=== PATIENT | male | born 1970 | race Caucasian/White ===

== ENCOUNTER 2024-03-17 14:41 | Outpatient (CLI) | payer OTHER, SELFPAY ==
--- NOTE | ~2024-03-17 | XR_ITS ---
XR abdomen/kub 1V 03/17/2024 15:09 INDICATION: Atherosclerotic hematuria TECHNIQUE: KUB COMPARISON: None FINDINGS: Bowel gas pattern is normal. There is no evidence of free air, mass, organomegaly, ascites or obstruction. There is a small 2-3 mm calcification in the right abdomen, suspicious for renal sto ne. The bones appear intact. IMPRESSION: 1: Probable 2-3 mm right renal stone at the L2-3 level.. Reviewed, dictated and finalized at location B.
--- NOTE | ~2024-03-17 | CT_ITS ---
CT abdomen pelvis wo/w con Ordering provider: Bry Sesay MD History: 53 years Male with . MICROSCOPIC HEMATURIA . Comparison: None. Technique: CT abdomen and pelvis with IV and without oral contrast. Automated exposure control and it erative reconstruction technique were employed. The dose-length product was 1612.06 mGy-cm. 130 mL Om nipaque 350 was given IV. Findings: VISUALIZED LOWER CHEST: Dependent atelectatic changes. UPPER ABDOMINAL ORGANS: Liver: Normal. Gallbladder: Normal. Spleen: Normal. Stomach/duodenum: Normal. Pancreas: Normal. Adrenals: Normal. Kidneys: Bilateral hydronephrotic changes more on the left side. No ureteric stones seen. Possibility of pelviureteric junction stenosis is not excluded. Clinical correlation advised. PELVIC ORGANS: The bladder is normal. BOWEL AND MESENTERY: Colon: Mild sigmoid diverticulosis without diverticulitis. The appendix is not demonstrated with no e vidence of appendicitis. Small Bowel: Normal. No obstruction. Peritoneum/mesentery: No free air or free fluid. No mesenteric lymphadenopathy. RETROPERITONEUM: Mild atheromatous disease of the abdominal aorta. No retroperitoneal lymphadenopat hy. Small para-aortic lymph nodes. MUSCULOSKELETAL: Superficial soft tissues: Left inguinal fat containing hernia. Otherwise, The superficial soft tissue s are normal. Bones: Age appropriate degenerative changes of the spine. IMPRESSION: 1. Bilateral kidney hydronephrotic changes with highly suggestive pelviureteric junction stenosis. N o stones seen. 2. No evidence of appendicitis, diverticulitis or intestinal obstruction. No renal stones. Reviewed, dictated and finalized at location A. IMPRESSION: 1. Bilateral kidney hydronephrotic changes with highly suggestive pelviureteri c junction stenosis. No stones seen. 2. No evidence of appendicitis, diverticulitis or intestinal obstruction. No r enal stones.
== END 2024-03-17 14:42 | disposition home or self-care (01) ==
LOC: ANHIMG 14:50
PROVIDERS: PCP Internal Medicine; Visit Provider Urology
DX: R31.29 Other microscopic hematuria (principal)
CPT/HCPCS: 74018; 74178; Q9967

== ENCOUNTER 2024-03-30 14:29 | Outpatient (CLI) | payer OTHER, SELFPAY ==
--- NOTE | ~2024-03-30 | NM_ITS ---
EXAMINATION: XOCHITL lopes renal scan DATE: 03/30/2024 15:32 INDICATION: Microscopic hematuria. Hydronephrosis. TECHNIQUE: 8.1 mCi Tc-99m MAG3 was administered IV. 40 mg furosemide was administered IV immediately afterward. The patient was scanned in the supine position. A posterior abdominal radionuclide angiog kuldip was obtained. A subsequent time course of static images of the kidneys, ureters, and bladder was obtained. COMPARISON: CT abdomen pelvis 03/17/2024 FINDINGS: The posterior abdominal radionuclide angiogram and sequential static images show mild atrop hy of left kidney. Peak renal parenchymal uptake was 3 min in right kidney and 20 min in left kidney (normal peak 3-5 minutes). The relative early renal uptake was 75% on the right and 25% on the left (<40% is abnormal). No abnormalities of the ureters or bladder are seen. T1/2 for clearance of activity from the right kidney and proximal collecting system was 14 minutes. T1/2 for clearance of activity from the left kidney and proximal collecting system was >>20 minutes. IMPRESSION: 1. Decreased left kidney function, which is 25% of total renal function. 2. Delayed contrast clearance from left kidney, consistent with fixed ureteral obstruction. Reviewed, dictated and finalized at location A.
== END 2024-03-30 14:30 | disposition home or self-care (01) ==
PROVIDERS: PCP Internal Medicine; Visit Provider Urology
DX: R31.29 Other microscopic hematuria (principal)
CPT/HCPCS: 78708; A9562

== ENCOUNTER 2024-09-20 12:44 | Outpatient (CLI) | payer OTHER, SELFPAY ==
--- NOTE | ~2024-09-20 | NM_ITS ---
EXAMINATION: XOCHITL lopes renal scan DATE: 09/20/2024 14:03 INDICATION: Hydronephrosis. TECHNIQUE: 7.8 mCi Tc-99m MAG3 was administered IV. 40 mg furosemide was administered IV immediately afterward. The patient was scanned in the supine position. A posterior abdominal radionuclide angiog kuldip was obtained. A subsequent time course of static images of the kidneys, ureters, and bladder was obtained. COMPARISON: Renal scan 03/30/2024, CT abdomen and pelvis 03/17/2024 FINDINGS: The posterior abdominal radionuclide angiogram and sequential static images show mild atrop hy of left kidney.. Peak renal parenchymal uptake was 3 min in right kidney and 3 min in left kidney (normal peak 3-5 minutes). The relative early renal uptake was 70% on the right and 30% on the left (<40% is abnormal). No abnormalities of the ureters or bladder are seen. T1/2 for clearance of activity from the right kidney and proximal collecting system was >>20 minutes. T1/2 for clearance of activity from the left kidney and proximal collecting system was >>20 minutes. IMPRESSION: 1. Decreased left kidney function, which is 30% of total renal function. 2. Delayed contrast clearance from both kidneys, which may be seen with supine positioning, dehydrat ion, atonic collecting system, poor renal function, and chronic furosemide use. Reviewed, dictated and finalized at location B. GED CARE PROVIDER IMPRESSION: 1. Decreased left kidney function, which is 30% of total renal function. 2. Delayed contrast clearance from both kidneys, which may be seen with supine positioning, dehydration, atonic collecting system, poor renal function, and c hronic furosemide use.
--- OUTSIDE RECORDS SUMMARY | 2024-09-22 00:32 | XMS_ITS | Data Portability ---
Author Organization [facility] [employer], Main Office Address [address] [place] [address] Assessment No assessment recorded. Plan of Treatment Reminders Order Date Submit Date Provider Last Modified By Organization Details Last Modified Time Details Appointments None record ed. Lab None record ed. Referral None record ed. Procedures None record ed. Surgeries None record ed. Imaging None record ed. Medication Orders None record ed. Patient TargetsNo targets recorded. Patient InstructionsNo instructions recorded. Reason for Referral None Reported. Results Created Date Observation Date Name Description Value Unit Range Abnormal Flag Note LastModifiedBy Organization Detail LastModifiedTime 12/26/19 22 12/25/2021 URINE MICRO SCOPI C EXAM/ IRIS white blood cells 0-8 /i??h pfi?? 0-8 Not Available [facility] (Lab) [address] [place], [address], 12/25/2021 16:51:33 12/26/19 22 12/25/2021 URINE MICRO SCOPI C EXAM/ IRIS red blood cells 0-4 /i??h pfi?? 0-4 Not Available [facility] (Lab) [address] [place], [address], 12/25/2021 16:51:33 12/26/19 22 12/25/2021 URINE MICRO SCOPI C EXAM/ IRIS bacteria none Not Available [facility] (Lab) [address] [place], [address], 12/25/2021 16:51:33 12/26/19 22 12/25/2021 URINE MICRO SCOPI C EXAM/ IRIS mucous occasi onal /i??l pfi?? abnormal Not Available [facility] (Lab) [address] [place], [address], 12/25/2021 16:51:33 12/26/19 22 12/25/2021 URINE MICRO SCOPI C EXAM/ IRIS squamous epithelial none /i??l pfi?? abnormal Not Available [facility] (Lab) [address] [place], [address], 12/25/2021 16:51:33 01/09/20 22 01/08/2022 urina lysis , dipst ick Leukocytes (reference range: negative jinny/??l) Negati ve Not Available [address], [address], 01/08/2022 10:59:37 01/09/20 22 01/08/2022 urina lysis , dipst ick Nitrite (reference rage: negative mg/dl) negati ve Not Available [address], [address], 01/08/2022 10:59:37 01/09/20 22 01/08/2022 urina lysis , dipst ick Urobilinogen (reference range: 0.2-1 mg/dl) 0.2 Not Available [address], [address], 01/08/2022 10:59:37 01/09/20 22 01/08/2022 urina lysis , dipst ick Protein (reference range: negative mg/dl) Negati ve Not Available [address], [address], 01/08/2022 10:59:37 01/09/20 22 01/08/2022 urina lysis , dipst ick pH (reference range: 5-7) 6.5 Not Available [address], [address], 01/08/2022 10:59:37 01/09/20 22 01/08/2022 urina lysis , dipst ick Blood (reference range: negative Maximo/??l) Negati ve Not Available [address], [address], 01/08/2022 10:59:37 01/09/20 22 01/08/2022 urina lysis , dipst ick Specific [place] (reference range: 1.005-1.030) 1.015 Not Available [address], [address], 01/08/2022 10:59:37 01/09/20 22 01/08/2022 urina lysis , dipst ick Ketone (reference range: negative mg/dl) Negati ve Not Available [address], [address], 01/08/2022 10:59:37 01/09/20 22 01/08/2022 urina lysis , dipst ick Bilirubin (reference range: negative mg/dl) Negati ve Not Available [address], [address], 01/08/2022 10:59:37 01/09/20 22 01/08/2022 urina lysis , dipst ick Glucose (reference range: negative mg/dl) Negati ve Not Available [address], [place], [address], 01/08/2022 10:59:37 01/09/20 22 01/08/2022 urina lysis , dipst ick Appearance Clear Not Available [facility] [address], [address], [place], [address], 01/08/2022 10:59:37 01/09/20 22 01/08/2022 urina lysis , dipst ick Color Yellow Not Available [facility] [place] [address], [address], [place], [address], 01/08/2022 10:59:37 03/09/20 24 03/09/2024 URINA LYSIS COMPL ETE, IRIS color LIGHT- YELLOW Not Available [facility] (Lab) [address] [place], [address], 03/09/2024 17:07:07 03/09/20 24 03/09/2024 URINA LYSIS COMPL ETE, IRIS appear CLEAR Not Available [facility] (Lab) [address] [place], [address], 03/09/2024 17:07:07 03/09/20 24 03/09/2024 URINA LYSIS COMPL ETE, IRIS specific gravity 1.020 1.001- 1.030 Not Available [facility] (Lab) [address] [place], [address], 03/09/2024 17:07:07 03/09/20 24 03/09/2024 URINA LYSIS COMPL ETE, IRIS pH 5.5 pH_un its 5.0-9. 0 Not Available [facility] (Lab) [address] [place], [address], 03/09/2024 17:07:07 03/09/20 24 03/09/2024 URINA LYSIS COMPL ETE, IRIS leukocytes NEGATI VE jinny/u L negati ve- Not Available [facility] (Lab) [address] [place], [address], 03/09/2024 17:07:07 03/09/20 24 03/09/2024 URINA LYSIS COMPL ETE, IRIS nitrite NEGATI VE negati ve- Not Available [facility] (Lab) [address] [place], [address], 03/09/2024 17:07:07 03/09/20 24 03/09/2024 URINA LYSIS COMPL ETE, IRIS protein 10 mg/dL negati ve- abnormal Not Available [facility] (Lab) [address] [place], [address], 03/09/2024 17:07:07 03/09/20 24 03/09/2024 URINA LYSIS COMPL ETE, IRIS glucose NORMAL mg/dL normal - Not Available [facility] (Lab) [address] [place], [address], 03/09/2024 17:07:07 03/09/20 24 03/09/2024 URINA LYSIS COMPL ETE, IRIS ketones NEGATI VE mg/dL negati ve- Not Available [facility] (Lab) [address] [place], [address], 03/09/2024 17:07:07 03/09/20 24 03/09/2024 URINA LYSIS COMPL ETE, IRIS urobilinogen NORMAL mg/dL normal - Not Available [facility] (Lab) [address] [place], [address], 03/09/2024 17:07:07 03/09/20 24 03/09/2024 URINA LYSIS COMPL ETE, IRIS bilirubin NEGATI VE mg/dL negati ve- Not Available [facility] (Lab) [address] [place], [address], 03/09/2024 17:07:07 03/09/20 24 03/09/2024 URINA LYSIS COMPL ETE, IRIS blood 0.06 mg/dL negati ve- abnormal Not Available [facility] (Lab) [address] [place], [address], 03/09/2024 17:07:07 03/09/20 24 03/09/2024 URINA LYSIS COMPL ETE, IRIS color LIGHT- YELLOW Not Available [facility] (Lab) [address] [place], [address], 03/09/2024 17:07:32 03/09/20 24 03/09/2024 URINA LYSIS COMPL ETE, IRIS appear CLEAR Not Available [facility] (Lab) [address] [place], [address], 03/09/2024 17:07:32 03/09/20 24 03/09/2024 URINA LYSIS COMPL ETE, IRIS specific gravity 1.020 1.001- 1.030 Not Available [facility] (Lab) [address] [place], [address], 03/09/2024 17:07:32 03/09/20 24 03/09/2024 URINA LYSIS COMPL ETE, IRIS pH 5.5 pH_un its 5.0-9. 0 Not Available [facility] (Lab) [address] [place], [address], 03/09/2024 17:07:32 03/09/20 24 03/09/2024 URINA LYSIS COMPL ETE, IRIS leukocytes NEGATI VE jinny/u L negati ve- Not Available [facility] (Lab) [address] [place], [address], 03/09/2024 17:07:32 03/09/20 24 03/09/2024 URINA LYSIS COMPL ETE, IRIS nitrite NEGATI VE negati ve- Not Available [facility] (Lab) [address] [facility] [place], [address], 03/09/2024 17:07:32 03/09/20 24 03/09/2024 URINA LYSIS COMPL ETE, IRIS protein 10 mg/dL negati ve- abnormal Not Available [facility] (Lab) [address] [place], [address], 03/09/2024 17:07:32 03/09/20 24 03/09/2024 URINA LYSIS COMPL ETE, IRIS glucose NORMAL mg/dL normal - Not Available [facility] (Lab) [address] [place], [address], 03/09/2024 17:07:32 03/09/20 24 03/09/2024 URINA LYSIS COMPL ETE, IRIS ketones NEGATI VE mg/dL negati ve- Not Available [facility] (Lab) [address] [place], [address], 03/09/2024 17:07:32 03/09/20 24 03/09/2024 URINA LYSIS COMPL ETE, IRIS urobilinogen NORMAL mg/dL normal - Not Available [facility] (Lab) [address] [place], [address], 03/09/2024 17:07:32 03/09/20 24 03/09/2024 URINA LYSIS COMPL ETE, IRIS bilirubin NEGATI VE mg/dL negati ve- Not Available [facility] (Lab) [address] [place], [address], 03/09/2024 17:07:32 03/09/20 24 03/09/2024 URINA LYSIS COMPL ETE, IRIS blood 0.06 mg/dL negati ve- abnormal Not Available [facility] (Lab) [address] [place], [address], 03/09/2024 17:07:32 03/09/20 24 03/09/2024 URINA LYSIS COMPL ETE, IRIS white blood cells 0-8 /i??h pfi?? 0-8 Not Available [facility] (Lab) [address] [place], [address], 03/09/2024 17:07:32 03/09/20 24 03/09/2024 URINA LYSIS COMPL ETE, IRIS red blood cells 5-10 /i??h pfi?? 0-4 abnormal Not Available [facility] (Lab) [address] [place], [address], 03/09/2024 17:07:32 03/09/20 24 03/09/2024 URINA LYSIS COMPL ETE, IRIS bacteria NONE Not Available [facility] (Lab) [address] [place], [address], 03/09/2024 17:07:32 03/09/20 24 03/09/2024 URINA LYSIS COMPL ETE, IRIS mucous OCCASI ONAL /i??l pfi?? abnormal Not Available [facility] (Lab) [address] [place], [address], 03/09/2024 17:07:32 03/09/20 24 03/09/2024 URINA LYSIS COMPL ETE, IRIS squamous epithelial OCCASI ONAL /i??l pfi?? abnormal Not Available [facility] (Lab) [address] [place], [address], 03/09/2024 17:07:32 03/09/20 24 03/09/2024 CBC/C OMPLE TE BLD COUNT W/DIF F white blood cells 6.5 x10'3 /uL 4.2-10 .8 Not Available [facility] (Lab) [address] [place], [address], 03/09/2024 17:08:18 03/09/20 24 03/09/2024 CBC/C OMPLE TE BLD COUNT W/DIF F red blood cells 4.38 x10'6 /uL 4.10-5 .80 Not Available [facility] (Lab) [address] [place], [address], 03/09/2024 17:08:18 03/09/20 24 03/09/2024 CBC/C OMPLE TE BLD COUNT W/DIF F hemoglobin 14.1 g/dL 13.2-1 7.0 Not Available [facility] (Lab) [address] [place], [address], 03/09/2024 17:08:18 03/09/20 24 03/09/2024 CBC/C OMPLE TE BLD COUNT W/DIF F hematocrit 40.9 % 39.3-5 0.0 Not Available [facility] (Lab) [address] [place], [address], 03/09/2024 17:08:18 03/09/20 24 03/09/2024 CBC/C OMPLE TE BLD COUNT W/DIF F mean red cell volume 93.4 fL 80.0-9 7.0 Not Available [facility] (Lab) [address] [place], [address], 03/09/2024 17:08:18 03/09/20 24 03/09/2024 CBC/C OMPLE TE BLD COUNT W/DIF F mean red cell hemoglobin 32.2 pg 27.0-3 3.0 Not Available [facility] (Lab) [address] [place], [address], 03/09/2024 17:08:18 03/09/20 24 03/09/2024 CBC/C OMPLE TE BLD COUNT W/DIF F mean RBC HGB concentratio n 34.5 g/dL 31.0-3 6.0 Not Available [facility] (Lab) [address] [place], [address], 03/09/2024 17:08:18 03/09/20 24 03/09/2024 CBC/C OMPLE TE BLD COUNT W/DIF F red cell distribution width 12.5 % 11.8-1 5.5 Not Available [facility] (Lab) [address] [place], [address], 03/09/2024 17:08:18 03/09/20 24 03/09/2024 CBC/C OMPLE TE BLD COUNT W/DIF F platelets 273 x10'3 /uL 150-40 0 Not Available [facility] (Lab) [address] [place], [address], 03/09/2024 17:08:18 03/09/20 24 03/09/2024 CBC/C OMPLE TE BLD COUNT W/DIF F mean platelet volume 10.2 fL 9.0-12 .4 Not Available [facility] (Lab) [address] [place], [address], 03/09/2024 17:08:18 03/09/20 24 03/09/2024 CBC/C OMPLE TE BLD COUNT W/DIF F neutrophils 61.8 % 39.0-7 2.0 Not Available [facility] (Lab) [address] [place], [address], 03/09/2024 17:08:18 03/09/20 24 03/09/2024 CBC/C OMPLE TE BLD COUNT W/DIF F lymphocytes 26.8 % 16.0-4 7.0 Not Available [facility] (Lab) [address] [place], [address], 03/09/2024 17:08:18 03/09/20 24 03/09/2024 CBC/C OMPLE TE BLD COUNT W/DIF F monocytes 8.5 % 5.0-12 .0 Not Available [facility] (Lab) [address] [place], [address], 03/09/2024 17:08:18 03/09/20 24 03/09/2024 CBC/C OMPLE TE BLD COUNT W/DIF F eosinophils 1.5 % 1.0-7. 0 Not Available [facility] (Lab) [address] [place], [address], 03/09/2024 17:08:18 03/09/20 24 03/09/2024 CBC/C OMPLE TE BLD COUNT W/DIF F basophils 0.9 % 0.0-2. 0 Not Available [facility] (Lab) [address] [place], [address], 03/09/2024 17:08:18 03/09/20 24 03/09/2024 CBC/C OMPLE TE BLD COUNT W/DIF F immature granulocytes 0.5 % 0.00-0 .50 Not Available [facility] (Lab) [address] [place], [address], 03/09/2024 17:08:18 03/09/20 24 03/09/2024 CBC/C OMPLE TE BLD COUNT W/DIF F neutrophils, absolute count 3.99 x10'3 /uL 1.5-8. 0 Not Available [facility] (Lab) [address] [place], [address], 03/09/2024 17:08:18 03/09/20 24 03/09/2024 CBC/C OMPLE TE BLD COUNT W/DIF F lymphocytes, absolute count 1.73 x10'3 /uL 1.07-3 .43 Not Available [facility] (Lab) [address] [place], [address], 03/09/2024 17:08:18 03/09/20 24 03/09/2024 CBC/C OMPLE TE BLD COUNT W/DIF F monocytes, absolute count 0.55 x10'3 /uL 0.29-0 .99 Not Available [facility] (Lab) [address] [place], [address], 03/09/2024 17:08:18 03/09/20 24 03/09/2024 CBC/C OMPLE TE BLD COUNT W/DIF F eosinophils, absolute count 0.10 x10'3 /uL 0.02-0 .53 Not Available [facility] (Lab) [address] [place], [address], 03/09/2024 17:08:18 03/09/20 24 03/09/2024 CBC/C OMPLE TE BLD COUNT W/DIF F basophils, absolute count 0.06 x10'3 /uL 0.01-0 .08 Not Available [facility] (Lab) [address] [place], [address], 03/09/2024 17:08:18 03/09/20 24 03/09/2024 CBC/C OMPLE TE BLD COUNT W/DIF F immature granulocytes ,absolute 0.03 x10'3 /uL 0.00-0 .05 Not Available [facility] (Lab) [address] [place], [address], 03/09/2024 17:08:18 03/09/20 24 03/09/2024 CBC/C OMPLE TE BLD COUNT W/DIF F nucleated red blood cells 0.0 % -0 Not Available [facility] (Lab) [address] [place], [address], 03/09/2024 17:08:18 03/09/20 24 03/09/2024 CBC/C OMPLE TE BLD COUNT W/DIF F NRBC# 0.00 x10'3 /uL Not Available [facility] (Lab) [address] [place], [address], 03/09/2024 17:08:18 03/09/20 24 03/09/2024 COMPR EHENS NELLIE METAB OLIC PANEL sodium 138 mmol/ L 137-14 5 Not Available [facility] (Lab) [address] [place], [address], 03/09/2024 17:23:59 03/09/20 24 03/09/2024 COMPR EHENS NELLIE METAB OLIC PANEL potassium 4.6 mmol/ L 3.5-5. 1 Not Available [facility] (Lab) [address] [place], [address], 03/09/2024 17:23:59 03/09/20 24 03/09/2024 COMPR EHENS NELLIE METAB OLIC PANEL chloride 110 mmol/ L 98-107 high Not Available [facility] (Lab) [address] [place], [address], 03/09/2024 17:23:59 03/09/20 24 03/09/2024 COMPR EHENS NELLIE METAB OLIC PANEL carbon dioxide 24 mmol/ L 22-30 Not Available [facility] (Lab) [address] [place], [address], 03/09/2024 17:23:59 03/09/20 24 03/09/2024 COMPR EHENS NELLIE METAB OLIC PANEL anion gap 8.6 mmol/ L 14-22 low Not Available [facility] (Lab) [address] [place], [address], 03/09/2024 17:23:59 03/09/20 24 03/09/2024 COMPR EHENS NELLIE METAB OLIC PANEL glucose 90 mg/dL 70-99 Not Available [facility] (Lab) [address] [place], [address], 03/09/2024 17:23:59 03/09/20 24 03/09/2024 COMPR EHENS NELLIE METAB OLIC PANEL BUN 17 mg/dL 8-19 Not Available [facility] (Lab) [address] [place], [address], 03/09/2024 17:23:59 03/09/20 24 03/09/2024 COMPR EHENS NELLIE METAB OLIC PANEL creatinine 1.40 mg/dL 0.66-1 .25 high Not Available [facility] (Lab) [address] [place], [address], 03/09/2024 17:23:59 03/09/20 24 03/09/2024 COMPR EHENS NELLIE METAB OLIC PANEL GFR 53 Refer ence Range : Potter ge GFR Healt hy Adult : >60 mL/mi n/1.7 3 m2 Chron ic Kidne y Disea se: 15-60 mL/mi n/1.7 3 m2 Kidne y Failu re: <15/m L/min /1.73 m2 www.n iddk. nih.g ov The MDRD study equat ion has not been valid ated in child dori <18 years of age; pregn ant women ; the elder ly >85 years of age; or in some racia l or ethni c subgr oups, such as Hisil nics. Outsi de the valid ated pito eters , estim ated GFR is less accur ate, requi ring clini melissa judgm ent on a case- by-ca se basis . Clini melissa inter preta tion for other races and ages must be made by the clini leon. The MDRD study equat ion has not been valid ated for the evalu ation of serum creat inine relat ed to nutri julia l statu s or medic ation usage . For perso ns <18 years of age, a pedia tric GFR calcu lator is avail able on the [facility] websi te: https ://marc matos.janee meadows/pr ofess ional s/kdo qi/gf r_cal culat or Not Available [facility] (Lab) [address] [place], [address], 03/09/2024 17:23:59 03/09/20 24 03/09/2024 COMPR EHENS NELLIE METAB OLIC PANEL alkaline phosphatase 57 U/L 38-126 Not Available [facility] (Lab) [address] [place], [address], 03/09/2024 17:23:59 03/09/20 24 03/09/2024 COMPR EHENS NELLIE METAB OLIC PANEL alanine aminotransfe rase 15 U/L 0-50 Not Available [facility] (Lab) [address] [place], [address], 03/09/2024 17:23:59 03/09/20 24 03/09/2024 COMPR EHENS NELLIE METAB OLIC PANEL aspartate aminotransfe rase 20 U/L 15-46 Not Available [facility] (Lab) [address] [place], [address], 03/09/2024 17:23:59 03/09/20 24 03/09/2024 COMPR EHENS NELLIE METAB OLIC PANEL bilirubin, total 0.60 mg/dL 0.20-1 .30 Not Available [facility] (Lab) [address] [place], [address], 03/09/2024 17:23:59 03/09/20 24 03/09/2024 COMPR EHENS NELLIE METAB OLIC PANEL calcium 9.6 mg/dL 8.4-10 .2 Not Available [facility] (Lab) [address] [place], [address], 03/09/2024 17:23:59 03/09/20 24 03/09/2024 COMPR EHENS NELLIE METAB OLIC PANEL total protein 7.0 g/dL 6.3-8. 2 Not Available [facility] (Lab) [address] [place], [address], 03/09/2024 17:23:59 03/09/20 24 03/09/2024 COMPR EHENS NELLIE METAB OLIC PANEL albumin 4.5 g/dL 3.4-5. 0 Not Available [facility] (Lab) [address] [place], [address], 03/09/2024 17:23:59 03/09/20 24 03/09/2024 COMPR EHENS NELLIE METAB OLIC PANEL globulin 2.5 g/dL 2.6-4. 2 low Not Available [facility] (Lab) [address] [place], [address], 03/09/2024 17:23:59 03/09/20 24 03/09/2024 COMPR EHENS NELLIE METAB OLIC PANEL A/G ratio 1.8 ratio 1.0-2. 0 Not Available [facility] (Lab) [address] [place], [address], 03/09/2024 17:23:59 03/09/20 24 03/09/2024 LIPID PANEL cholesterol 185 mg/dL 140-19 9 [employer] GRANT NSUS RECOM MENDA TION FOR NAOMIE STERO L: ADULT CHILD LOW RISK: <200 <170 BORDE RLINE : <200- 239 ----- HIGH RISK: >240 >200 Not Available [facility] (Lab) [address] [place], [address], 03/09/2024 17:24:04 03/09/20 24 03/09/2024 LIPID PANEL triglyceride s 138 mg/dL 0-150 NIH GRANT NSUS REPOR T RECOM MENDA TION FOR TRIGL YCERI MALORIE: ADULT CHILD LOW RISK: <150 ----- BODER LINE: 150-1 99 ----- HIGH RISK: >200 ----- Not Available [facility] (Lab) [address] [place], [address], 03/09/2024 17:24:04 03/09/20 24 03/09/2024 LIPID PANEL HDL cholesterol 40 mg/dL 40- Not Available [facility] (Lab) [address] [place], [address], 03/09/2024 17:24:04 03/09/20 24 03/09/2024 LIPID PANEL LDL cholesterol, calculated 117 mg/dL 0-130 NIH GRANT NSUS REPOR T RECOM MENDA TIONS FOR LDL: ADULT CHILD LOW RISK <130 <110 (OPTI MAL LDL) <100 ----- BORDE RLINE : 130-1 59 ----- HIGH RISK: >160 >130 A TRIGL YCERI DE RESUL T >400 INVAL IDATE S THE CALCU LATIO N FOR LDL FRACT IONAT ION - THE LDL RESUL T WILL NOT BE REPOR JENNIFER. Not Available [facility] (Lab) [address] [place], [address], 03/09/2024 17:24:04 03/09/20 24 03/09/2024 PSA SCREE N PSA medicare screen 1.16 NG/mL 0.00-4 .00 Not Available [facility] (Lab) [address] [place], [address], 03/09/2024 18:01:45 12/20/19 22 XR, lumba r spine [facility] [address] [place] [address] Patien t Name: ALMA BENNETT ion #: [id number] Sex: M : 1969 4 Locati on: RA2 Attend ing Physic amaris: GRANT GONSALES [facility] Physic amaris: GRANT GONSALES Exam Date: 022 4:46 PM Exam Name: XR L SPINE 4V+ Admitt ing Diagno sis(es ): RADIOL OGY REPORT - FINAL EXAM: XR L SPINE 4V+ HISTOR Y: pain COMPAR ROSENDO: None availa ble. TECHNI QUE: AP, bilate ral obliqu e's, latera l, and coned latera l views of the lumbar sacral juncti on. FINDIN GS: Examin ation of the lumbar spine reveal s the interv ertebr al disc spaces to be preser mamadou. Bony pedicl es appear intact . There is mild-t o-mode rate multil evel degene rative change s throug hout the thorac olumba r spine. The sacral iliac joints appear normal . There is no fractu re or bone destru ction identi fied. Page 1 of 2 [facility] Patien t Name: ALMA BENNETT ion #: [id number] Sex: M : 1969 4 Exam Date: 4:46 PM Exam Name: XR L SPINE 4V+ Admitt ing Diagno sis(es ): If clinic al sympto ms shivaniis t, MRI examin ation could be consid ered. IMPRES ZULEYKA: No acute proces s, see above. Create d and electr onical ly signed by: Bal watkins MD Signed Date: 8:30 AM (CT) Dictat ed by: Bal watkins MD DD: 8:30 AM (CT) DT: 8:30 AM (CT) Page 2 of 2 [id number] [facility] (Imaging) [address] [place], [address], 10/28/2022 08:54:59 12/20/19 XR, kidne y + urete r + bladd er [facility] [address] [place] [address] [phone] [place] t Name: ALMA BENNETT ion #: [id number] Sex: M : 1969 4 Locati on: RA2 Attend ing Physic amaris: GRANT GONSALES [facility] Physic amaris: GRANT GONSALES Exam Date: 4:46 PM Exam Name: XR ABDOME N 1V Admitt ing Diagno sis(es ): RADIOL OGY REPORT - FINAL EXAM: XR ABDOME N 1V HISTOR Y: pain COMPAR ROSENDO: None availa ble. TECHNI QUE: AP views of the abdome n were perfor med. FINDIN GS: Examin ation of the abdome n in supine positi on reveal s a normal bowel gas patter n withou t radiog raphic eviden ce of mechan ical bowel obstru ction. There is no eviden ce of abnorm al calcif icatio n. The liver and spleen are not enlarg ed. No air is apprec iated in the biliar y tree. IMPRES ZULEYKA: Page 1 of 2 [facility] Pati vannessa Name: ALMA BENNETT ion #: [id number] Sex: M : 1969 4 Exam Date: 4:46 PM Exam Name: XR ABDOME N 1V Admitt ing Diagno sis(es ): No radiog raphic eviden ce of abdomi nal diseas e. Create d and electr onical ly signed by: Bal watkins MD Signed Date: 1:11 PM (CT) Dictat ed by: Bal watkins MD DD: 1:11 PM (CT) DT: 1:11 PM (CT) Page 2 of 2 [id number] [facility] (Imaging) [address] [place], [address], 10/28/2022 08:54:59 01/14/20 22 01/07/2022 CT, abdom en + pelvi s, w/ contr ast No observ ation record ed. [id number] Not Available 10/28/2022 08:54:59 01/16/20 22 01/14/2022 NM, kidne y scan No observ ation record ed. [id number] [facility] ([facility]) [address] [place], [address], 10/28/2022 08:54:59 11/11/19 23 11/10/2022 elect roenc ephal ogram (EEG) ; inclu ding recor ding awake and drows y (PROC ) No observ ation record ed. [email or web address] [facility] [address], [place], [address], 11/16/2022 09:44:50 11/19/19 23 11/10/2022 varsha nuous elect roenc ephal ogram with video No observ ation record ed. [email or web address] Not Available 21:12:14 03/17/20 24 03/16/2024 LDCT, chest , for lung [place] [facility] [address] [facility] [place] [address] Patien t Name: ALMA BENNETT ion #: [id number] Sex: M : 1969 7 Dictat ed By: Gavin Montanez Attend ing Physic amaris: GRANT GONSALES Orderi ng Physic amaris: GRANT GONSALES Exam Date: 2023 14:43 PM Exam Name: CT LOW DOSE CNCR SCREEN ING Admitt ing Diagno sis(es ): Proced ure: CT LOW DOSE CNCR SCREEN ING Reason for study/ Clinic al Histor y: cancer screen ing, nicoti ne depend ence Compar rosendo Study: None availa ble at time of dictat ion. Exam Date: 2023 02:43 PM TECHNI QUE: Multid etecto r CT of the chest was perfor med from the lung apices to the upper abdome n withou t the use of intrav enous contra ct. Axial, mora l and sagitt al multip lanar reform ats were perfor med. Radiat ion Dose Inform ation: CT Dose: CTDI volume is 25 mGy. Dose-l ength produc t is 250 mGy*cm The dose indica tors for CT are the volume Comput ed Tomogr aphy (CT) Dose Index (CTDIv ol) and the Dose Length Produc t (DLP), and are measur ed in units of mGy and mGy-cm , respec tively . These indica tors are not patien t dose, but values genera jennifer from the CT scanne r acquis ition factor s. The report includ es radiat ion exposu re data for exposu res receiv ed during this examin ation. FINDIN GS: Lower neck: Normal thyroi d. Lungs: No suspic ious pulmon jean nodule s. Diffus e centri lobula r emphys morgan. Bronch iectas is. Heart/ Vascul ar Struct ures: Normal heart size. No perica rdial effusi on. Lymph Nodes: No adenop athy Page 1 [facility] [facility] [address] [facility] [place] [address] Patien t Name: ALMA BENNETT ion #: [id number] Sex: M : 1969 7 Dictat ed By: Gavin Montanez Attend ing Physic amaris: DRU MAXWELL Orderi ng Physic amaris: GRANT GONSALES Exam Date: 2023 14:43 PM Exam Name: CT LOW DOSE CNCR SCREEN ING Admitt ing Diagno sis(es ): Pleura : No pleura l effusi on or signif icant pneumo thorax . Muscul oskele surekha: No acute osseou s abnorm ality. Soft tissue s: Normal . Upper abdome n: Limite d portio ns of the upper abdome n are unrema rkable . IMPRES ZULEYKA: No acute intrat horaci c abnorm ality. Catego ry 1: Contin ue annual screen ing with LDCT Radiat ion optimi zation : All CT scans at this facili ty use at least one of these dose optimi zation techni ques: automa jennifer exposu re contro l mA and/or kV adjust ment per patien t size (inclu malorie target ed exams where dose is matche d to clinic al indica tion) or iterat nellie recons tructi on. Electr onical ly Signed by: Gavin Montanez at 2023 07:32: 38 AM Page 2 [email or web address] [facility] (Imaging) [address], [place], [address], 03/29/2024 13:59:57 Result Notes None recorded. Problems Name Problem SNOMED Code Status Onset Date Resolution Date Notes Provider Name and Address Organization Details Recorded Time Left flank pain 043444554 Active 2021 Not Available [facility] 3 08:50:03 Ganglion of wrist 629262802 Active 2018 Not Available [facility] 3 08:50:03 Dyspnea 994170523 Active Not Available [facility] 3 08:50:03 Dizziness and giddiness 331739785 Active Not Available [facility] 3 08:50:03 Thoracic back pain 725161486 Active Not Available [facility] 3 08:50:03 Low back pain 970742759 Active Not Available [facility] 3 08:50:03 Chest pain 77484675 Active Not Available [facility] 3 08:50:03 Bronchitis 27752035 Active Not Available [facility] 3 08:50:03 Dizziness 841621875 Active 2021 Not Available [facility] 3 08:50:04 Otitis media 68662596 Active 2021 Not Available [facility] 3 08:50:04 Palpitations 99075828 Active Not Available [facility] 3 08:50:04 Fatigue 17545855 Active Not Available [facility] 3 08:50:04 Acute sinusitis 24066288 Active 2022 Jerilyn Eugene RN [facility], [place] - [facility] [employer] [facility] 3 12:49:40 Problem Notes None recorded. Procedures Surgical History Date Name Laterality Status Provider Name and Address Organization Details Recorded Time arthroscopy of knee completed Not Available [facility] 10/28/2022 08:45:29 incision and drainage completed Not Available [facility] 10/28/2022 08:45:29 Imaging Results Imaging Date Name Status LastModified by Organization Details LastModified Time 12/19/2021 XR, lumbar spine completed MIGRATION.0 [id number] [facility] [address] [place], [address], 10/28/2022 08:54:59 12/19/2021 XR, kidney + ureter + bladder completed MIGRATION.0301 [id number] [facility] ([facility]) [address] [place], [address], 10/28/2022 08:54:59 01/14/2022 NM, kidney scan completed MIGRATION.03 [id number] [facility] ([facility] Scheduling) [address] [place], [address], 10/28/2022 08:54:59 01/07/2022 CT, abdomen + pelvis , w/ contrast completed MIGRATION.0301 [id number] Information not available 10/28/2022 08:54:59 11/10/2022 electroencephalogram (EEG); including recording awake and drowsy (PROC) completed [email or web address] [address] [facility] [address], [place], [address], 11/16/2022 09:44:50 11/10/2022 continuous electroencephalogram with video completed [email or web address] Information not available 11/24/2022 21:12:14 03/16/2024 LDCT, chest, for rafa g cancer screening completed [email or web address] [facility] ([facility]) [address] [place], [address], 03/29/2024 13:59:57 Procedure Notes None recorded. Medical Equipment None Reported. Allergies Allergen ID Allergen Name Allergen Category Reaction Reaction Severity Criticality Documentation Date Start Date Code Code System Note Provider Name and Address Organization Details Recorded Time 72822 lorazepam medicatio n other Not available Not available 10/28/2022 6470 RxNorm suici peter thoug hts Not Available [facility] 08:54:50 Medications Name Sig Start Date Stop Date Status Note LastModified by Organization Details LastModified Time cyclobenzap rine 10 mg tablet 09/29 completed Not Available Not Available Not Available amoxicillin 500 mg capsule TAKE 1 CAPSULE BY MOUTH THREE TIMES DAILY 07/13 completed Not Available Not Available Not Available azithromyci n 250 mg tablet TAKE 2 TABLETS BY MOUTH FOR 1 DAY THEN TAKE 1 TABLET BY MOUTH DAILY FOR 4 DAYS active Not Available Not Available No t Available ibuprofen 800 mg tablet Take 1 tablet 3 times a day by oral route with meals. active Not Available Not Available No t Available tizanidine 4 mg tablet TK 1 T PO Q 8 H PRF SPASM 11/28 completed Not Available Not Available Not Available hydrocodone 5 mg-acetamin ophen 325 mg tablet TAKE 1 TABLET BY MOUTH EVERY 6 HOURS NEEDED 07/13 completed Not Available Not Available Not Available meloxicam 15 mg tablet TK 1 T PO QD 11/28 completed Not Available Not Available Not Available Medrol (Slade) 4 mg tablets in a dose pack Take 1 package every day by oral route. 11/28 completed Not Available Not Available Not Available acetaminoph en 300 mg-codeine 30 mg tablet 09/29 completed Not Available Not Available Not Available sulfamethox azole 800 mg-trimetho prim 160 mg tablet TAKE 1 TABLET BY MOUTH TWICE DAILY FOR 10 DAYS 12/18 completed Not Available Not Available Not Available tramadol 50 mg tablet 08/10 completed Not Available Not Available Not Available lorazepam 0.5 mg tablet 11/28 completed Not Available Not Available Not Available hydrocodone 7.5 mg-acetamin ophen 325 mg tablet TK 1 T PO Q 8 H PRN P 12/04 completed Not Available Not Available Not Available cephalexin 500 mg capsule TAKE 1 CAPSULE BY MOUTH FOUR TIMES DAILY active Not Available Not Available No t Available hydrocodone 7.5 mg-acetamin ophen 750 mg tablet 08/10 completed Not Available Not Available Not Available Paxil 10 mg tablet Take 1 tablet every day by oral route. 12/17 completed Not Available Not Available Not Available mometasone 0.1 % topical cream APPLY A THIN LAYER TO THE AFFECTED AREA(S) BY TOPICAL ROUTE ONCE DAILY active Not Available Not Available No t Available Advil 2021 active Not Available Not Available Not Avai lable ProAir HFA 90 mcg/actuati on aerosol inhaler Inhale 2 puff(s) EVERY 4 hours as needed active Not Available Not Available No t Available Vitals Date Recorded Body mass index (BMI) Body height Heart rate Body temperature Body weight Systolic blood pressure Diastolic blood pressure Provider Name and Address Organization Details Last Updated DateTime 2 29.1 kg/m2 180.34 cm 70 /min 97.5 [degF] 01534.8 1 g 120 mm[Hg] 70 mm[Hg] Not Available [facility] 3 08:47:46 Date Recorded Body mass index (BMI) Body height Oxygen saturation Oxygen saturation in Arterial blood by Pulse oximetry Body temperature Body weight Provider Name and Address Organization Details Last Updated DateTime 2 29.1 kg/m2 180.34 cm 97 % 97 % 98.4 [degF] 19362.8 1 g Not Available [facility] 3 08:47:51 Date Recorded Body mass index (BMI) Body height Heart rate Body temperature Body weight Systolic blood pressure Diastolic blood pressure Provider Name and Address Organization Details Last Updated DateTime 2 29 kg/m2 180.34 cm 74 /min 97.4 [degF] 43037.2 1 g 140 mm[Hg] 80 mm[Hg] Not Available [facility] 3 08:47:46 Date Recorded Body mass index (BMI) Body height Heart rate Body temperature Body weight Systolic blood pressure Diastolic blood pressure Provider Name and Address Organization Details Last Updated DateTime 2 28.2 kg/m2 180.34 cm 83 /min 98 [degF] 54530.6 6 g 118 mm[Hg] 82 mm[Hg] Not Available [facility] 3 08:47:47 Date Recorded Body height Heart rate Body temperature Body weight Systolic blood pressure Diastolic blood pressure Provider Name and Address Organization Details Last Updated DateTime 2 180.34 cm 83 /min 98.5 [degF] 08541.2 1 g 118 mm[Hg] 70 mm[Hg] Not Available [facility] 3 08:47:47 Social History Question Answer Notes LastModified by Organization Details LastModified Time Tobacco Smoking Status Current Every Day Smoker Not Available [facility] 10/28/2022 08:45:10 Do You Have An Advance Directive? No MIGRATION.030 [id number] Information not available 10/28/2022 What Is Your Level Of Alcohol Consumption? Occasional MIGRATION.0301 [id number] Information not available 10/28/2022 What Is Your Level Of Caffeine Consumption? Heavy MIGRATION.0301 154244 Information not available 10/28/2022 In The 14 Days Before Symptom Onset, Have You Had Close Contact With A Laboratory-confi rmed COVID-19 While That Case Was Ill? No MIGRATION.030 [id number] Information not available 10/28/2022 In The 14 Days Before Symptom Onset, Have You Had Close Contact With A Person Who Is Under Investigation For COVID-19 While That Person Was Ill? No MIGRATION.030 861824 Information not available 10/28/2022 What Type Of Diet Are You Following? REGULAR MIGRATION.0301 580693 Information not available 10/28/2022 What Is The Highest Grade Or Level Of School You Have Completed Or The Highest Degree You Have Received? 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 No MIGRATION.0301 966987 Information not available 10/28/2022 What Is The Fluoride Status Of Your Home? Unknown MIGRATION.0301 084084 Information not available 10/28/2022 Are There Any Guns Present In Your Home? No MIGRATION.0301 194939 Information not available 10/28/2022 Do You Use Insect Repellent Routinely? No MIGRATION.0301 [id number] Information not available 10/28/2022 Where Do You Live? SingleLevelHouse MIGRATION.0301 325062 Information not available 10/28/2022 Do You Have A Medical Power Of Financial Compliance Officer? No MIGRATION.0301 977053 Information not available 10/28/2022 What Was The Date Of Your Most Recent Tobacco Screening? 07/13/2022 MIGRATION.0301 335393 Information not available 10/28/2022 What Is Your Current Pack Years? 30ormorepackyears MIGRATION.0301 831207 Information not available 10/28/2022 Have You Ever Been Counseled For Unhealthy Alcohol Use? No MIGRATION.0301 906911 Information not available 10/28/2022 Do You Have Any Pets? Yes MIGRATION.0301 653761 Information not available 10/28/2022 What Is Your Relationship Status? MIGRATION.0301 [id number] Information not available 10/28/2022 Do You Use Your Seat Belt Or Car Seat Routinely? Yes MIGRATION.0301 344336 Information not available 10/28/2022 Do You Have Smoke And Carbon Monoxide Detectors In Your Home? Yes MIGRATION.0301 471090 Information not available 10/28/2022 At What Age Did You Start Smoking Tobacco? 16 MIGRATION.0301 872856 Information not available 10/28/2022 Are You Passively Exposed To Smoke? Yes MIGRATION.0301 015279 Information not available 10/28/2022 Are There Any Smokers In Your House? Yes MIGRATION.0301 853002 Information not available 10/28/2022 How Much Tobacco Do You Smoke? 2 PPD More Like 1.5ppd MIGRATION.030 769226 Information not available 10/28/2022 What Types Of Sporting Activities Do You Participate In? None MIGRATION.030 806311 Information not available 10/28/2022 Do You Feel Stressed (tense, Restless, Nervous, Or Anxious, Or Unable To Sleep At Night)? [id number] MIGRATION.030 253608 Information not available 10/28/2022 Do You Use Any Illicit Or Recreational Drugs? No MIGRATION.0301 583694 Information not available 10/28/2022 Do You Use Sunscreen Routinely? Yes MIGRATION.030 505064 Information not available 10/28/2022 Has Tobacco Cessation Counseling Been Provided? No MIGRATION.0301 102423 Information not available 10/28/2022 Have You Recently Traveled Abroad? No MIGRATION.030 894278 Information not available 10/28/2022 Do You Have Any Dietary Restrictions? No MIGRATION.0301 934433 Information not available 10/28/2022 Do You Or Have You Ever Used Any Other Forms Of Tobacco Or Nicotine? No MIGRATION.0301 951036 Information not available 10/28/2022 Sex: Male Functional Status Question Answer Note LastModified by Organizat ion Details LastModified Time What is your exercise level? Occasional MIGRATION.[id number] 26 Information not available 10/28/2022 Mental Status None recorded. Family History Relationship Description Onset Age of this Age Resolved Age Notes LastModified by Organization Details LastModified Time Father Malignant neoplastic disease MIGRATION.559 [id number] Not available 10/28/2022 08:45:30 Mother General health good MIGRATION.435 [id number] Not available 10/28/2022 08:45:30 Medical History Condition Response NERVE DISEASE N BLINDNESS N RHEUMATIC FEVER N KIDNEY STONES N BLADDER PROBLEMS N MRSA N OTHER # 1 N POLIO N LUNG DISEASE/DISORDER N HISTORY OF DRUG ABUSE N RADIATION / CHEMOTHERAPY N COPD N Other # 2 N BLOOD DISEASES N EAR OR HEARING PROBLEMS N MUMPS N SHINGLES N BOWEL PROBLEMS N DEPRESSION (INCLUDING POST ) N STROKE/TIA N ULCERS N BENIGN PROSTATIC HYPERPLASIA N MEASLES N HYPOTENSION N MYOCARDIAL INFARCTION N OBESITY N GERD/NAUSEA N ANEURYSM N URINARY/BLADDER/KIDNEY PROBLEMS N CORONARY ARTERY DISEASE (CAD) N ADDICTION CONCERNS N Impotence N ENDOMETRIOSIS N USE OF BLOOD THINNERS N SKIN PROBLEMS N GASTROINTESTINAL DISORDER N PERIPHERAL VASCULAR DISEASE N MUSCLE,JOINT OR BONE PROBLEMS N GASTROINTESTINAL BLEEDING N BLOOD CLOTS N ASTHMA N CATARACTS N ERECTILE DYSFUNCTION N VARICOSITIES N GI PROBLEMS N Low Testosterone N INFERTILITY N AIDS/HIV N CHEMOTHERAPY / RADIATION N LIVER DISEASE N MALE HYPOGONADISM N HYPERTENSION N Deficiency N TOURETTE'S N ANXIETY DISORDER N BLOOD TRANSFUSION N ANEMIA/BLOOD DISORDER N CHRONIC EAR INFECTIONS N BRONCHITIS Y TUBERCULOSIS N GLAUCOMA N FOOT PROBLEM N DIVERTICULITIS N SLEEP APNEA N CHICKENPOX N INFECTIOUS DISEASE N PROSTATE N HEART ARRHYTHMIA N INSOMNIA N HIGH CHOLESTEROL / HYPERLIPIDEMIA N EYE PROBLEMS N HYPERTHYROIDISM N EDEMA N CHRONIC PAIN SYNDROME N HYPOTHYROIDISM N CONSTIPATION N CAROTID BLOCKAGE N BACK / NECK PROBLEMS Y HAVE YOU BEEN HOSPITALIZED OR SEEN IN [facility] IN THE PAST YEAR ? N ATHEROSCLEROSIS N BREAST PROBLEMS N DIALYSIS N ECZEMA N OSTEOPOROSIS N ARTHRITIS N APPENDICITIS N DIABETES, TYPE N BAD TEETH N ENT N HEARTBURN / REFLUX N AUTISM SPECTRUM DISORDER (ASD) N HEPATITIS / LIVER DISEASE N GOUT N SLEEP DISORDER N ALZHEIMER'S DISEASE N Brain Problems N DEMENTIA N HERPES N SEIZURES/EPILEPSY N HEADACHES/MIGRAINES N VASCULAR DISEASE N PACEMAKER N Blood Disorder N DIZZINESS N HEART DISEASE/HEART PROBLEMS N KIDNEY DISEASE N MULTIPLE SCLEROSIS N CANCER: SPECIFY N CARDIAC ARRHYTHMIA Y ATRIAL FIBRILLATION N Gall Stones N PULMONARY EMBOLISM N AUTOIMMUNE DISEASE N Past Encounters Encounter ID Performer Location Encounter Start Date Encounter Closed Date Diagnosis/Indication Diagnosis SNOMED-CT Code Diagnosis ICD10 Code Diagnosis Note [id number] [facility] Keny mcdaniels [address] [facility] [place] [address] 12/18/2021 00:00:00 12/18/2021 20:59:47 [id number] [facility] [address] [place] [address] 12/25/2021 00:00:00 12/27/2021 13:03:56 [id number] [facility] [address] [place], [place] [address]veronica, [address] [address] 01/07/2022 00:00:00 01/07/2022 20:27:42 [id number] [facility] [place] [address], [address] [address] 01/08/2022 00:00:00 01/08/2022 11:55:38 [id number] [facility] [address] [place], [place] [address]e., [address] [address] 01/12/2022 00:00:00 01/12/2022 22:04:32 [id number] [facility] [address] [address] 01/15/2022 00:00:00 01/15/2022 12:45:33 [id number] [facility] [address] [address] 02/02/2022 00:00:00 03/29/2022 22:59:14 [id number] [facility] [address] [address] 06/08/2022 00:00:00 06/09/2022 08:26:10 [id number] [facility] [address] [address] 07/13/2022 00:00:00 07/13/2022 23:21:37 Health Concerns Section Related Observation LastModified by Organization Detai ls LastModified Time None Recorded Concern Status LastModified by Organization Details LastModified Time None Recorded Advance Directives Directive N: Payers None recorded.
--- OUTSIDE RECORDS SUMMARY | 2024-09-22 00:32 | XMS_ITS | Clinical Summary ---
Author Organization [facility] Address [address] [place] [address]. [place], [place] [address] [place] [address] Care Team Providers Care Mortising Machine Operator Name Role Phone Trino Jean MD Primary Care Provider [phone] Family History Medical History Relation Comments Bone cancer Father Lung Cancer Father Throat cancer Father Relation Status Comments Father Social History Tobacco Use Types Packs/Day Years Used Date Smoking Tobacco: Every Day Cigarettes Smokeless Tobacco: Current Tobacco Cessation:Ready to Q uit: No; Counseling Given: Yes Alcohol Use Standard Drinks/Week Comments Yes 1 (1 standard drink = 0.6 oz pur e alcohol) rare PHQ-2 Answer Date Recorded Patient Health Questionnaire-2 Score 0 10/08/2022 Sex and Gender Information Value Date Recorded Sex Assigned at Not on file Legal 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 Gender Identity Not on file Sexual Orientation Not on file Last Filed Vital Signs Vital Sign Reading Time Taken Comments Blood Pressure 97/67 10/08/2022 10:46 AM URBAN DESIGNER Pulse 85 10/08/2022 10:46 AM URBAN DESIGNER Temperature 36.7 ??C (98.1 ??F) 10/08/2022 1 0:46 AM URBAN DESIGNER Respiratory Rate 18 10/08/2022 10:4 6 AM URBAN DESIGNER Oxygen Saturation 97% 10/08/2022 10: 46 AM URBAN DESIGNER Inhaled Oxygen Concentration - - Weight 92.5 kg (203 lb 14.4 oz) 023 10:46 AM URBAN DESIGNER Height 182.9 cm (6') 10/08/2022 10:46 AM URBAN DESIGNER Body Mass Index 27.65 10/08/2022 10:46 AM URBAN DESIGNER Plan of Treatment Health Maintenance Due Date Last Done Comments Colorectal Cancer Screening Colonoscopy (10 Years) 1972 Annual Physical 1975 Pneumococcal Vaccine: Pediat rics (0 to 5 Years) and At-Risk Patients (6 to 64 Years) (1 of 2 - PCV) 1978 Hepatitis C 1990 DTaP, Tdap and Td Vaccines ( 1 - Tdap) 1991 Hepatitis B Vaccines (1 of 3 - 19+ 3-dose series) 1991 Zoster Vaccines (1 of 2) 2022 PHQ-2 (Physician [place]) 10/08/2023 10/08/2022 COVID-19 Vaccine (1 - 2023-2 5 season) 2024 Influenza Adult (#1) 2024 Meningococcal B Vaccine Aged Out No l onger eligible based on patient's age to complete this topic Meningococcal Vaccine Aged Out No dian wesley eligible based on patient's age to complete this topic RSV Immunizations Under 20 Months Aged Out No longer eligible based on patient's age to complete this topic Insurance [employer] Care Teams Mortising Machine Operator Relationship Specialty Start Date End Date Trino Jean MD [address] [place] [address] PCP - General INTERNAL MEDICINE 10/08/22
--- OUTSIDE RECORDS SUMMARY | 2024-09-22 00:33 | XMS_ITS | CONTINUITY OF CARE DOCUMENT ---
Author Name alexandre teresadoe Address Unknown Organization [facility] Address [address] [place] [address] [address] [place] [address] Phone [phone] Care Team Providers Care Camp Attendant Name Role Phone Vincent Mcmahan MD Unavailable [phone] ELSIE GONSALES MD Unavailable ELSIE GONSALES MD Unavailable [phone] PROBLEMS Condition Status Date Provider Notes Anxiety, situational active Vincent Mcmahan MD Tobacco abuse active Vincent Mcmahan MD Shortness of breath active Vincent Mcmahan MD Chest pain-neg exercise stress (12/12) active Vincent Mcmahan MD Other symptoms involving car diovascular system active Vincent Mcmahan MD ENCOUNTERS Date Type Provider Location Encounter Diag nosis - In-person encounter Office Visit Vincent Mcmahan MD [facility] Other symptoms involving cardiovascular systemChest pain-neg exercise stress (12/12)Shortness of breathTobacco abuseAnxiety, situational VITAL SIGNS Date Observation Value Provider Body Mass Index (Ratio) 23.05 kg/m2 Anea alix Myron blood pressure, diastolic 79 mm[Hg] An eatris Myron blood pressure, systolic 121 mm[Hg] Ane atris Myron pulse rate 75 /min Aneatris Myron oxygen saturation, oximetry 99 % Aneatris Myron respiratory rate E&M 18 /min Aneatri s Myron weight E&M 170 [lb_av] Aneatris Myron height E&M 72 [in_i] Everton Myron blood pressure, diastolic 70 mm[Hg] Be ambar Laned blood pressure, systolic 102 mm[Hg] Bet fay Jose ALLERGIES No Known Drug Allergies HISTORY OF MEDICATION USE No Known Medication SOCIAL HISTORY Date Observation Value Provider social history reviewed E&M revi ewed - no changes required Vincent Mcmahan MD social history E&M Patient kim tovar smokes every day. Smoking History: P capri currently smokes every day. P atsubhash has been counseled to quit. Vincent Mcmahan MD smoking/tobacco cess ation, patient education and counseling yes Vincent Mcmahan MD smoking, date started 1984 Florar nicholson Myron smoking history, tot al pack/day 1 1/2 Miguelbharat Mryon cigarette use yes Everton Sanches smoking status current every day smoker U dyllan Mcmahan MD smoking status current Cristal Garcia FUNCTIONAL STATUS Date Observation Value Provider periodic limb movement index absent (0) Cristal Garcia FAMILY HISTORY Family Member Condition First Degree Blood Relative No Known Fam eric History INSURANCE PROVIDERS Payer name Policy type / Coverage type Alma red constitution party ID [facility] [id number] TREATMENT PLAN Date Name DLCO Order - [id number] FRC Order - [id number] FVC Order - [id number] Full PFT HISTORY OF PROCEDURES Procedure Date Procedure Name Provider Procedure Notes S tatus EKG Vincent Mcmahan MD completed
== END 2024-09-20 12:45 | disposition home or self-care (01) ==
PROVIDERS: PCP Internal Medicine; Visit Provider Urology
DX: R93.421 Abnormal radiologic findings on diagnostic imaging of right kidney (principal); R93.422 Abnormal radiologic findings on diagnostic imaging of left kidney; N13.30 Unspecified hydronephrosis
CPT/HCPCS: 78708; A9562; J1940